=== PATIENT | male | born 1940 | race Two or more races ===

== ENCOUNTER 2024-02-03 09:12 | Inpatient (IN) | payer OTHER ==
[~2024-02-03] VITALS: Ht 165.1 cm; Wt 68.4 kg
[2024-02-03 10:03] LABS: Chloride 105 mmol/L (98-107); Potassium 4.1 mmol/L (3.5-5.1); Sodium 139 mmol/L (136-145)
[2024-02-03 10:04] LABS: Anion Gap 4 (5-15); Calcium 10.4 mg/dL (8.5-10.1); Carbon Dioxide 30 mmol/L (20-30)
[2024-02-03 10:06] LABS: Basophils # (auto) 0.1 10 ^3/uL (0-0.2); Eosinophils # (auto) 0.2 10 ^3/uL (0-0.8); Mean Corpuscular Hemoglobin 26.9 pg (28.0-32.0); Mean Corpuscular Hgb Conc. 32.8 g/dL (32.0-36.0); Monocytes # (auto) 0.7 10 ^3/uL (0-1.3)
[2024-02-03 10:08] LABS: Eosinophils % (auto) 3.2 % (0.0-7.0); Hemoglobin 13.4 g/dL (13.5-17.5); Lymphocytes # (auto) 1.7 10 ^3/uL (0.4-5.4); Lymphocytes % (auto) 27.2 % (10.0-50.0); Mean Corpuscular Volume 81.9 fL (80.0-100.0); Monocytes % (auto) 10.2 % (0.0-12.0); Neutrophils # (auto) 3.7 10 ^3/uL (1.6-8.6); Neutrophils % (auto) 58.4 % (37.0-80.0); Red Blood Cells 5.01 10^6/uL (4.5-5.90); Red Cell Distribution Width 16.4 % (11.8-14.3); White Blood Cell 6.4 10^3/uL (4.4-10.8)
[2024-02-03 10:09] LABS: BUN/Creatinine Ratio 14.3 (10.0-20.0); Blood Urea Nitrogen 13 mg/dL (9-23); Glucose 79 mg/dL (74-106)
[2024-02-03 10:13] VITALS: PULSE 65; RESP 15; O2SAT 97
[2024-02-03 11:25] LABS: Urine Bacteria None Seen /hpf (None Seen)
[2024-02-03 11:53] LABS: Urine Amorphous Crystal FEW /hpf (None Seen); Urine Blood Negative /uL (Negative); Urine Clarity Clear (Clear); Urine Color Colorless (Yellow); Urine Protein, UAD Negative (Negative); Urine Specific Gravity 1.008 (1.001-1.035); Urine Urobilinogen Normal (Negative); Urine WBC 2 /hpf (0 - 3)
[2024-02-03] MEDS ORDERED: ACETAMINOPHEN 325 MG TAB PO PRN (18:00)
[2024-02-03] MEDS ORDERED: NITROGLYCERIN 0.4 MG SL TAB SL PRN (18:00)
[2024-02-03] MEDS ORDERED: MORPHINE SULFATE INJ 2 MG/ml SYRG IV PRN ×2 (18:00)
[2024-02-03] MEDS ORDERED: DOCUSATE SOD 100 MG CAP PO PRN (18:00)
[2024-02-03] MEDS ORDERED: HYDROcodone-ACET 5/325MG TAB PO PRN (18:00)
[2024-02-03] MEDS: SODIUM CHLORIDE 0.9% 1,000 ML IV SCH (18:21)
[2024-02-03 19:30] VITALS: PULSE 52; RESP 25; O2SAT 92
[2024-02-04 07:25] VITALS: PULSE 68; RESP 14; O2SAT 95
[2024-02-04] MEDS: ONDANSETRON HCL 4 MG/2 ML VIAL IV PRN (09:33)
[2024-02-04] MEDS: ENOXAPARIN SOD 40 MG/0.4 ML SYRINGE SC SCH (09:34)
[2024-02-04 15:16] VITALS: BP 119/75; PULSE 82; RESP 20; TEMP 98.2; O2SAT 98
[2024-02-04 15:30] VITALS: BP 147/84; PULSE 69; RESP 14; TEMP 97.8; O2SAT 95
== END 2024-02-04 15:30 | disposition home or self-care (01) | DRG 914 ==
LOC: ER 09:12 → TELE 17:55
PROVIDERS: ADMIT Internal Medicine; ATTEND Internal Medicine
DX: S09.8XXA Other specified injuries of head, initial encounter (principal); R00.1 Bradycardia, unspecified; E78.5 Hyperlipidemia, unspecified; I10 Essential (primary) hypertension; N40.0 Benign prostatic hyperplasia without lower urinary tract symptoms; Z96.651 Presence of right artificial knee joint; G62.9 Polyneuropathy, unspecified; I25.10 Atherosclerotic heart disease of native coronary artery without angina pectoris; W18.39XA Other fall on same level, initial encounter; Y93.89 Activity, other specified; Y92.89 Other specified places as the place of occurrence of the external cause; Y99.8 Other external cause status
CPT/HCPCS: 36415; 70450; 70551; 80048; 81001; 84484; 85025; 93306; 97163; G0378; J2405